=== PATIENT | male | born 1965 | race Caucasian/White ===

== ENCOUNTER 2016-07-30 08:26 | Emergency (ER) | payer OTHER ==
--- NOTE | 2016-07-30 08:40 | EDPHY ---
H & P Stated Complaint: CP HX of pericarditis (tanesha wolffg 04/30) Time Seen by Provider: 07/30/16 08:38 HPI/ROS: CHIEF COMPLAINT: Chest pain HISTORY OF PRESENT ILLNESS: The patient presents to the ED with an acute exacerbation of chronic chest pain. 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 Because of this arrhythmia, the patient underwent a ablation performed at the [facility]. This unfortunately was complicated by postprocedure pericarditis which the patient has suffered from since the ablation. Patient had been managing the symptoms with ibuprofen and also culture seen. The patient reportedly has been tapering off his culture seen over the past week. The patient developed an acute exacerbation of his symptoms today. The patient denies any fever, cough or congestion. He denies asymmetric calf pain or swelling. The patient reports he has sharp left-sided chest pain which is positional and pleuritic in nature. REVIEW OF SYSTEMS: A comprehensive 10 point review of systems is otherwise negative aside from elements mentioned in the history of present illness. Source: Patient Exam Limitations: No limitations - Personal History Current Tetanus/Diphtheria Vaccine: Yes Current Tetanus Diphtheria and Acellular Pertussis (TDAP): Yes - Medical/Surgical History Hx Asthma: No Hx Chronic Respiratory Disease: No Hx Diabetes: No Hx Cardiac Disease: Yes Hx Renal Disease: No Hx Cirrhosis: No Hx Alcoholism: No Hx HIV/AIDS: No Hx Splenectomy or Spleen Trauma: No Other PMH: Ablation for high ectopy ([facility]04/30) appendectomy, tonsilectomy ,wisdom teeth extraction - Social History Smoking Status: Never smoked - Physical Exam Exam: General Appearance: Alert, no distress Eyes: Pupils equal and round no pallor or injection ENT, Mouth: Mucous membranes moist Respiratory: There are no retractions, lungs are clear to auscultation Cardiovascular: Regular rate and rhythm, no rubs murmurs gallops appreciated Gastrointestinal: Abdomen is soft and nontender, no masses, bowel sounds normal Neurological: A&O, normal motor function, normal sensory exam, normal cranial nerves Skin: Warm and dry, no rashes Musculoskeletal: Neck is supple nontender Extremities: symmetrical, full range of motion Constitutional: Initial Vital Signs Temperature (C) 36.5 C 05/19/17 08:28 Heart Rate 68 07/30/16 08:28 Respiratory Rate 16 07/30/16 08:28 Blood Pressure 124/66 H 07/30/16 08:28 O2 Sat (%) 99 07/30/16 08:28 O2 Delivery Mode Room Air Allergies/Adverse Reactions: Milk Containing Products [dairy] Allergy (Verified 01/02/16 06:35) Penicillins Allergy (Verified 01/02/16 06:35) Home Medications: Medication Instructions Recorded Aspirin 81mg (*) 162 mg PO DAILY 01/02/16 Co Q-10 100 mg Softgel 100 mg PO DAILY 01/02/16 Coreg 6.25 mg PO BID 01/02/16 LYSINE 1,000 mg PO DAILY 01/02/16 Lisinopril 10 mg PO BID 01/02/16 Multivitamin 1 tab PO DAILY 01/02/16 [place] 3 Fish Oil Softgel 3,000 mg PO BID 01/02/16 Vitamin D3 2000 units tab (OTC) 1 tab PO BID 01/02/16 Colchicine [Mitigare] 0.6 mg PO BID #60 capsule 07/30/16 Fluticasone Nasal [Flonase Nasal 07/30/16 [place]] Propranolol HCl 20 mg PO 07/30/16 Medical Decision Making - Diagnostics EKG Interpretation: EKG: Complete interpretation has been separately recorded in the [facility] archive. Summary impression: Sinus rhythm, minimal diffuse ST segment elevation unchanged from prior EKG. ED Course/Re-evaluation: I reviewed the patient's past medical records. He presents to the ED with an acute exacerbation of chronic chest pain. His EKG demonstrates no evidence of acute ischemic changes. His troponin is normal. The patient's sed rate is noted to be within normal limits. Patient did undergo an echocardiogram which demonstrates no significant pericardial effusion or wall motion abnormality. The study results were reported to me by Dr. Stanley Manriquez at 11:00 a.m. At this point time I do feel the patient can continue to manage his ongoing chest pain which is consistent with chronic pericarditis. Patient will resume his regular dose of colchicine and continue to use ibuprofen 600 mg up to 3 times a day. Patient has been instructed to return to the ED for markedly worsening symptoms or other concerns. The patient will follow up with his regular test developer at [facility]. Differential Diagnosis: Differential diagnosis considered includes pericarditis, myocardial infarction, pericardial effusion, myocarditis - Data Points Laboratory Results: Laboratory Results 07/30/16 08:49 07/30/16 08:49 07/30/16 07/30/16 07/30/16 08:49 08:49 08:49 WBC 7.59 10^3/uL 10^3/uL (3.80-9.50) RBC 4.91 10^6/uL 10^6/uL (4.40-6.38) Hgb 14.7 g/dL g/dL (13.7-17.5) Hct 44.0 % % (40.0-51.0) MCV 89.6 fL fL (81.5-99.8) MCH 29.9 pg pg (27.9-34.1) MCHC 33.4 g/dL g/dL (32.4-36.7) RDW 13.0 % % (11.5-15.2) Plt Count 194 10^3/uL 10^3/uL (150-400) MPV 10.8 fL fL (8.7-11.7) Neut % (Auto) 65.8 % % (39.3-74.2) Lymph % (Auto) 20.9 % % (15.0-45.0) [place] % (Auto) 7.6 % % (4.5-13.0) Eos % (Auto) 4.9 % % (0.6-7.6) Baso % (Auto) 0.5 % % (0.3-1.7) Nucleat RBC Rel Count 0.0 % % (0.0-0.2) Absolute Neuts (auto) 4.99 10^3/uL 10^3/uL (1.70-6.50) Absolute Lymphs (auto) 1.59 10^3/uL 10^3/uL (1.00-3.00) Absolute Monos (auto) 0.58 10^3/uL 10^3/uL (0.30-0.80) Absolute Eos (auto) 0.37 10^3/uL 10^3/uL (0.03-0.40) Absolute Basos (auto) 0.04 10^3/uL 10^3/uL (0.02-0.10) Absolute Nucleated RBC 0.00 10^3/uL 10^3/uL (0-0.01) Immature Gran % 0.3 % % (0.0-1.1) Immature Gran # 0.02 10^3/uL 10^3/uL (0.00-0.10) Sodium 141 mEq/L mEq/L (134-144) Potassium 4.2 mEq/L mEq/L (3.5-5.2) Chloride 107 mEq/L mEq/L (97-110) Carbon Dioxide 26 mEq/l mEq/l (22-31) Anion Gap 8 mEq/L mEq/L (8-16) BUN 34 mg/dL H mg/dL (7-23) Creatinine 1.0 mg/dL mg/dL (0.7-1.3) Estimated GFR > 60 Glucose 73 mg/dL mg/dL (70-100) Calcium 8.8 mg/dL mg/dL (8.5-10.4) Troponin I < 0.012 ng/mL ng/mL (0-0.034) C-Reactive Protein < 5.0 mg/L mg/L (<10.0) Departure - Departure Disposition: Home, Routine, Self-Care Clinical Impression: Chronic pericarditis Condition: Good Instructions: Chronic Pericarditis (ED) Additional Instructions: 1. Take Ibuprofen or Motrin 600 mg by mouth three times a day. 2. Please resume your regular dose of colchicine. 3. Please contact your regular test developer at [facility] to schedule a follow-up visit. 4. Please return to the ED for markedly worsening symptoms or other concerns. Referrals: Linette Carrasco MD [Primary Care Provider] - As per Instructions Prescriptions: Colchicine [Mitigare] 0.6 mg PO BID #60 capsule
--- NOTE | 2016-07-30 08:46 | CPEKG ---
Heart Rate: 67 RR Interval: 896 P-R Interval: 216 QRSD Interval: 92 QT Interval: 384 QTC Interval: 406 P [place]: 55 QRS [place]: 19 T Wave [place]: 25 EKG Severity - ABNORMAL ECG - EKG Impression: SINUS RHYTHM Electronically Signed By: Nathan Estes 30-Jul-2016 09:11:42
[2016-07-30 08:55] LABS: % IMMATURE GRANULYOCYTES 0.3 % (0.0-1.1); ABSOLUTE IMMATURE GRANULOCYTES 0.02 10^3/uL (0.00-0.10); ADD DIFF? NO; ADD MORPH? NO; ADD SCAN? NO; ATYPICAL LYMPHOCYTE FLAG 10 (0-99); FRAGMENT RBC FLAG 0 (0-99); HEMOGLOBIN 14.7 g/dL (13.7-17.5); LEFT SHIFT FLG 0 (0-99); LIPEMIA HEMOLYSIS FLAG 80 (0-99); MEAN CELL HEMOGLOBIN 29.9 pg (27.9-34.1); MEAN CELL HEMOGLOBIN CONCENTR. 33.4 g/dL (32.4-36.7); MEAN CELL VOLUME 89.6 fL (81.5-99.8); MEAN PLATELET VOLUME 10.8 fL (8.7-11.7); PLATELET CLUMPS FLAG 0 (0-99); PLATELET COUNT 194 10^3/uL (150-400); RED BLOOD CELL COUNT 4.91 10^6/uL (4.40-6.38)
[2016-07-30 09:08] LABS: ANION GAP 8 mEq/L (8-16); CALCIUM 8.8 mg/dL (8.5-10.4); CARBON DIOXIDE 26 mEq/l (22-31); CHLORIDE 107 mEq/L (97-110); GLOMERULAR FILTRATION RATE > 60; GLUCOSE 73 mg/dL (70-100); POTASSIUM 4.2 mEq/L (3.5-5.2); SODIUM 141 mEq/L (134-144)
[2016-07-30 09:19] LABS: TROPONIN I < 0.012 ng/mL (0-0.034)
[2016-07-30 10:19] VITALS: RESP 14
[2016-07-30 10:20] VITALS: BP 103/60; PULSE 60; TEMP 97.5; O2SAT 96
--- NOTE | 2016-07-30 11:23 | ECHO ---
[id number] + + [address] : : [place] [address] : : [phone] + + Adult Echocardiographic Report + + :Name: RADHA WALSH JStudy Date: 07/30/2016 09:34 AM : : Hospital Admission Number: [id number] Loc edelmira: ER4: :: 1965 Gender: Male Height: 74 in : :Age: 50 yrs Race: WH Weight: 195 lb : :Reason For Study: Eval LV Fx : : BSA: 2.1 me ters2 : :History: Chest Pain, History of Pericarditis : + + MMode/2D Measurements \T\ Calculations IVSd: 0.90 cm LVIDd: 5.6 cm FS: 34.8 % Ao root diam: 3.0 cm LVPWd: 1.1 cm LVIDs: 3.6 cm EDV(Teich): 150.5 ml ACS: 1.9 cm ESV(Teich): 55.2 ml EF(Teich): 63.4 % Normal Measurement Values: + + :LVIDd (3.5-5.7cm) IVSd (0.6-1.1cm) LVPWd (0.6-1.1cm) Aortic Root (2.0-3.7cm)Left Atrium (1.5-4.0cm): :LV Vol(d) (76-115ml) LV Vol(s) (29-48ml) Ejec Fraction (50-65%)PV Sam (0.6- 1.2m/s) TV Sam (0.4-1.0m/s) : :MV E Sam (0.8-1.0m/s)MV A Sam (0.3-1.0m/s)LVOT Sam (0.7-1.2m/s) Asc Ao Sam ( 0.9-1.8m/s) : + + Doppler Measurements \T\ Calculations MV E max sam: Ao V2 max: LV V1 max: PA V2 max: 74.0 cm/sec 145.0 cm/sec 120.0 cm/sec 109.0 cm/sec MV A max sam: Ao max PG: LV V1 max PG: PA max P.3 cm/sec 8.4 mmHg 5.8 mmHg 4.8 mmHg MV E/A: 1.3 TR max sam: 255.0 cm/sec TR max P.0 mmHg RAP systole: 5.0 mmHg RVSP(TR): 31.0 mmHg Left Ventricle The left ventricle is normal in size. There is normal left ventricular wall thickness. The left ventricular ejection fraction is normal. Ejection Fraction = 64%. The left ventricle is normal in structure and function. The left ventricular ejection fraction is calculated at 63.4 %. There is Doppler evidence for diastolic dysfunction. The left ventricular wall motion is normal. Right Ventricle The right ventricle is mildly dilated. TAPSE is 2.3 cm. Atria The left atrial size is normal. Right atrial size is normal. Mitral Valve The mitral valve is normal. There is trace to mild mitral regurgitation. Tricuspid Valve The tricuspid valve is normal in structure and function. There is trace tricuspid regurgitation. Right ventricular systolic pressure is normal. Aortic Valve The aortic valve is normal in structure and function. The aortic valve is trileaflet. There is no aortic stenosis. There is no aortic insufficiency. Pulmonic Valve The pulmonic valve is not well visualized. There is no pulmonic valvular regurgitation. Great Vessels The aortic root is normal size. Pericardium/Pleural There is no pericardial effusion. Conclusion A complete two-dimensional transthoracic echocardiogram was performed (2D, M-mode, Doppler and color flow Doppler). (1) Left ventricular systolic ejection fraction was normal (60-65%) - normal wall motion (2) No left ventricular hypertrophy (3) Diastolic dysfunction was present (4) Normal right ventricular size and function (5) Normal atrial dimensions (6) Trace/mild mitral regurgitation (7) Trileaflet aortic valve without sclerosis or insufficiency (8) Physiologic tricuspid regurgitation - RVSP was normal (9) Poor visualization of the pulmonic valve (10) Iin comparison to prior echocardiogram from 05-12-16, there is no pericardial effusion and continued normal LVEF is noted. Final Reading Physician: Orville Recio signed on 07/30/2016 11:22 AM Ordering Physician: Nathan Estes Performed By: Darci Smith, AIDENCS
== END 2016-07-30 10:30 | disposition home or self-care (01) ==
DX: I31.9 Disease of pericardium, unspecified (principal); Z79.82 Long term (current) use of aspirin

== ENCOUNTER 2016-07-31 08:30 | Emergency (ER) | payer OTHER ==
[2016-07-31 08:37] VITALS: RESP 18; TEMP 99
--- NOTE | 2016-07-31 08:47 | CPEKG ---
Heart Rate: 66 RR Interval: 909 P-R Interval: 208 QRSD Interval: 86 QT Interval: 376 QTC Interval: 394 P [place]: 50 QRS [place]: 30 T Wave [place]: 46 EKG Severity - ABNORMAL ECG - EKG Impression: SINUS RHYTHM EKG Impression: ST ELEVATION SUGGESTS PERICARDITIS Electronically Signed By: Nathan Estes 31-Jul-2016 15:46:01
--- NOTE | 2016-07-31 08:48 | EDPHY ---
H & P Stated Complaint: midsternal cp x 1 wk worse today with sob, seen yesterday same Time Seen by Provider: 07/31/16 08:41 HPI/ROS: CHIEF COMPLAINT: Worsening symptoms of pericarditis HISTORY OF PRESENT ILLNESS: The patient presents to the ED with complaints of worsening pleuritic positional chest pain. The patient has a history of a chronic abbie pericarditis. The patient was seen in the emergency department yesterday. At that point time he had evidence of mild pericarditis on his EKG however an unremarkable echocardiogram and biomarker analysis. The patient was advised to resume his regular dose of colchicine yesterday. He has been taking 800 mg of ibuprofen 3 times a day. The patient presents today because his symptoms have worsened. They are fairly typical symptoms of pericarditis. Patient denies additional acute complaints. REVIEW OF SYSTEMS: A comprehensive 10 point review of systems is otherwise negative aside from elements mentioned in the history of present illness. Source: Patient - Personal History Current Tetanus/Diphtheria Vaccine: Unsure Current Tetanus Diphtheria and Acellular Pertussis (TDAP): Unsure - Medical/Surgical History Hx Asthma: No Hx Chronic Respiratory Disease: No Hx Diabetes: No Hx Cardiac Disease: Yes Hx Renal Disease: No Hx Cirrhosis: No Hx Alcoholism: No Hx HIV/AIDS: No Hx Splenectomy or Spleen Trauma: No Other PMH: Ablation for high ectopy ([facility]04/30) appendectomy, tonsilectomy ,wisdom teeth extraction - Social History Smoking Status: Never smoked - Physical Exam Exam: General Appearance: Alert, no distress Eyes: Pupils equal and round no pallor or injection ENT, Mouth: Mucous membranes moist Respiratory: There are no retractions, lungs are clear to auscultation Cardiovascular: Regular rate and rhythm, no rub Gastrointestinal: Abdomen is soft and nontender, no masses, bowel sounds normal Neurological: A&O, normal motor function, normal sensory exam, normal cranial nerves Skin: Warm and dry, no rashes Musculoskeletal: Neck is supple nontender Extremities: symmetrical, full range of motion Constitutional: Initial Vital Signs Temperature (C) 37.2 C 07/31/16 08:34 Heart Rate 78 07/31/16 08:34 Respiratory Rate 18 07/31/16 08:34 Blood Pressure 105/61 07/31/16 08:34 O2 Sat (%) 98 07/31/16 08:34 O2 Delivery Mode Room Air Allergies/Adverse Reactions: Milk Containing Products [dairy] Allergy (Verified 01/02/16 06:35) Penicillins Allergy (Verified 01/02/16 06:35) Home Medications: Medication Instructions Recorded Aspirin 81mg (*) 162 mg PO DAILY 01/02/16 Co Q-10 100 mg Softgel 100 mg PO DAILY 01/02/16 Coreg 6.25 mg PO BID 01/02/16 LYSINE 1,000 mg PO DAILY 01/02/16 Lisinopril 10 mg PO BID 01/02/16 Multivitamin 1 tab PO DAILY 01/02/16 [place] 3 Fish Oil Softgel 3,000 mg PO BID 01/02/16 Vitamin D3 2000 units tab (OTC) 1 tab PO BID 01/02/16 Colchicine [Mitigare] 0.6 mg PO BID #60 capsule 07/30/16 Fluticasone Nasal [Flonase Nasal 07/30/16 [place]] Propranolol HCl 20 mg PO 07/30/16 Medical Decision Making - Diagnostics EKG Interpretation: EKG: Complete interpretation has been separately recorded in the [facility] archive. Summary impression: Changes consistent with pericarditis or noted Imaging Results: Imaging Impressions Chest X-Ray 07/31/16 10:28 Impression: Nothing acute identified. ED Course/Re-evaluation: The patient presents to the ED with symptoms of worsening pericarditis. The patient continues to have evidence of pericarditis on his EKG. The patient's troponin is normal. Patient's chest x-ray demonstrates no evidence of a pneumothorax or heart failure. The patient's D-dimer is negative which I feel adequately excludes pulmonary embolism. I did consult with the on-call investigation lieutenant at [facility] who recommends the patient begin taking 325 mg of aspirin 3 times a day in lieu of ibuprofen. They would like the patient to continue colchicine. They do not recommend starting steroids at this point time. The patient will contact his regular investigation lieutenant on Tuesday to schedule a follow -up visit. The patient was monitored in the emergency department for 4 hours without evidence of vital sign abnormalities, worsening symptoms or other concerns. Differential Diagnosis: Differential diagnosis considered includes pericarditis, myocarditis, pulmonary embolism, pneumothorax, myocardial infarction - Data Points Laboratory Results: 07/31/16 07/31/16 08:50 08:50 D-Dimer < 0.27 ug/mLFEU ug/mLFEU (0.00-0.50) Troponin I < 0.012 ng/mL ng/mL (0-0.034) Departure - Departure Disposition: Home, Routine, Self-Care Clinical Impression: Pericarditis Condition: Good Instructions: Chronic Pericarditis (ED) Additional Instructions: 1. I spoke with the on-call investigation lieutenant at [facility] who recommends stopping ibuprofen and instead taking aspirin 325 mg 3 times a day. 2. Please contact your regular investigation lieutenant at [facility] on Tuesday to review your symptoms. They do not recommend steroids at this point time. 3. Please return to the ED this weekend for markedly worsening symptoms or other concerns. Referrals: Linette Carrasco MD [Primary Care Provider] - As per Instructions
[2016-07-31 12:09] VITALS: PULSE 77
[2016-07-31] MEDS ORDERED: methylPREDNISolone SOD SUCC 125 MG/2 ML VIAL IVP ONE (12:37)
[2016-07-31 13:16] VITALS: BP 131/66; O2SAT 99
== END 2016-07-31 13:16 | disposition home or self-care (01) ==
DX: I31.9 Disease of pericardium, unspecified (principal); Z79.82 Long term (current) use of aspirin

== ENCOUNTER 2016-07-31 20:18 | Observation (INO) | payer OTHER ==
--- NOTE | 2016-07-31 20:54 | EDPHY ---
H & P Stated Complaint: chest pain hx of myocarditis HPI/ROS: CHIEF COMPLAINT: Worsening chest pain HISTORY OF PRESENT ILLNESS: This is a 50-year-old male who has been to the emergency department 3 times now in the past 2 days. He has a history of chronic my 0 pericarditis. This began about a year ago following cardiac ablation that was performed because of ectopy--by his report, thousands of PVCs daily. He developed pericarditis postprocedure early. He has been taking ibuprofen and colchicine. He has been trying to taper his colchicine but 2 days ago developed worsening chest pain. The chest pain is positional. He has not had fever, cough, leg swelling or calf pain. He describes the pain as sharp. It is located centrally. He is followed at [facility]. His ablation was performed at the [facility]. He was seen in the emergency department on 07/30, yesterday, and at that time underwent an echocardiogram. He had normal cardiac biomarkers. He was instructed to continue ibuprofen in resume his regular dose of colchicine. His pain worsened worsened and he presented to the emergency department again this morning. At that time the physician on duty spoke with the haul truck driver on- call at [facility] and it was recommended that he continue colchicine and switch from ibuprofen to aspirin. Steroids were not recommended. Throughout the day today his chest pain has escalated, prompting tonbarbara's visit. He has an appointment in [facility] on Tuesday for cardiac MRI. His haul truck driver is . REVIEW OF SYSTEMS: A ten point review of systems was performed and is negative with the exception of the items mentioned in the HPI. 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 He is here with his . - Physical Exam Exam: General Appearance: Alert. Vital signs reviewed. He appears to be in pain. Eyes: Pupils equal and round, no conjunctival injection, no discharge. Anicteric. ENT, Mouth: Mucous membranes are moist, no oropharyngeal erythema or edema. Neck: No lymphadenopathy, supple. Trachea midline. Respiratory: Lungs are clear to auscultation; no wheezes, rales, or rhonchi. Cardiovascular: Regular rate and rhythm; no murmur, rub, or gallop. Gastrointestinal: Abdomen is soft and nontender, no masses or organomegaly, bowel sounds normal. Skin: Warm and dry, no rashes on exposed skin, normal color. Back: No CVAT. Extremities: No lower extremity edema, no calf tenderness or swelling. Neurological: Alert and oriented. Moving all four extremities easily and equally. Psychiatric: Normal affect. Constitutional: Initial Vital Signs Temperature (C) 36.9 C 07/31/16 20:20 Heart Rate 83 07/31/16 20:20 Respiratory Rate 22 H 07/31/16 20:20 Blood Pressure 123/71 H 07/31/16 20:20 O2 Sat (%) 100 07/31/16 20:20 O2 Delivery Mode Room Air O2 (L/minute) 93 Allergies/Adverse Reactions: Milk Containing Products [dairy] Allergy (Verified 01/02/16 06:35) Penicillins Allergy (Verified 01/02/16 06:35) Home Medications: Medication Instructions Recorded Aspirin 81mg (*) 162 mg PO DAILY 01/02/16 Co Q-10 100 mg Softgel 100 mg PO DAILY 01/02/16 Coreg 6.25 mg PO BID 01/02/16 LYSINE 1,000 mg PO DAILY 01/02/16 Lisinopril 10 mg PO BID 01/02/16 Multivitamin 1 tab PO DAILY 01/02/16 [place] 3 Fish Oil Softgel 3,000 mg PO BID 01/02/16 Vitamin D3 2000 units tab (OTC) 1 tab PO BID 01/02/16 Colchicine [Mitigare] 0.6 mg PO BID #60 capsule 07/30/16 Fluticasone Nasal [Flonase Nasal 07/30/16 [place]] Propranolol HCl 20 mg PO 07/30/16 Medical Decision Making - Diagnostics EKG Interpretation: 12 lead EKG is interpreted in [facility] by emergency department physician. Compared to earlier EKGs. There is ST elevation that is diffuse and consistent with pericarditis. ED Course/Re-evaluation: , Libby, can be reached at home tonight at [phone]. He received Dilaudid 0.5 mg IV and Toradol 15 mg IV. With these medications he had significant pain relief. He was re-evaluated at approximately 11:00 p.m., which time he had continued pain relief with occasional twinges of some chest discomfort. I am recommending overnight hospitalization for pain control and transition to oral pain medicine. I do not feel that he needs imaging at this point in time. He had a chest x- ray done this morning. I do not suspect accumulation of a significant pericardial effusion, but if the clinical situation changed, he might require cardiac ultrasound/echo. Troponin is normal tonight. Differential Diagnosis: I considered a differential diagnosis that includes but is not limited to myocarditis, pericarditis, pericarditis with pleural effusion, tamponade, PE, pneumonia, myocardial infarction, and pneumothorax. - Data Points Laboratory Results: Laboratory Results 07/31/16 20:55 07/31/16 20:55 Sodium 141 mEq/L mEq/L (134-144) Potassium 4.2 mEq/L mEq/L (3.5-5.2) Chloride 106 mEq/L mEq/L (97-110) Carbon Dioxide 25 mEq/l mEq/l (22-31) Anion Gap 10 mEq/L mEq/L (8-16) BUN 23 mg/dL mg/dL (7-23) Creatinine 0.9 mg/dL mg/dL (0.7-1.3) Estimated GFR > 60 Glucose 100 mg/dL mg/dL (70-100) Calcium 9.1 mg/dL mg/dL (8.5-10.4) Troponin I < 0.012 ng/mL ng/mL (0-0.034) Medications Given: Discontinued Medications Hydromorphone HCl (Dilaudid) 0.5 mg IVP EDNOW ONE Stop: 07/31/16 21:08 Last Admin: 07/31/16 21:18 Dose: 0.5 mg Ketorolac Tromethamine (Toradol) 15 mg IVP EDNOW ONE Stop: 07/31/16 21:08 Last Admin: 07/31/16 21:19 Dose: 15 mg Departure - Departure Disposition: [facility] Clinical Impression: Pericarditis Qualifiers: Pericarditis type: other type Chronicity: chronic Chronic pericarditis complication: unspecified complication status Qualified Code(s): I31.8 - Other specified diseases of pericardium Condition: Good Referrals: Linette Carrasco MD [Primary Care Provider] - As per Instructions
[2016-07-31] MEDS ORDERED: HYDROmorphONE/DILAUDID 1 MG/ML SYR IVP ONE ×2 (21:07→23:21)
[2016-07-31] MEDS ORDERED: KETOROLAC 30 MG/1 ML SDV IVP ONE (21:07)
[2016-07-31 21:11] LABS: ANION GAP 10 mEq/L (8-16); CALCIUM 9.1 mg/dL (8.5-10.4); CARBON DIOXIDE 25 mEq/l (22-31); CHLORIDE 106 mEq/L (97-110); CREATININE 0.9 mg/dL (0.7-1.3); GLOMERULAR FILTRATION RATE > 60; GLUCOSE 100 mg/dL (70-100); POTASSIUM 4.2 mEq/L (3.5-5.2); SODIUM 141 mEq/L (134-144)
[2016-07-31 21:22] LABS: TROPONIN I < 0.012 ng/mL (0-0.034)
[2016-08-01] MEDS ORDERED: ONDANSETRON 4 MG/2 ML VIAL IVP PRN (00:19)
[2016-08-01] MEDS ORDERED: ONDANSETRON DISINTEGRATING 4 MG TAB PO PRN (00:19)
[2016-08-01] MEDS ORDERED: HYDROmorphONE/DILAUDID 1 MG/ML SYR IVP PRN ×2 (00:19→03:20)
[2016-08-01] MEDS ORDERED: ACETAMINOPHEN 325 MG TAB PO PRN (00:19)
--- NOTE | 2016-08-01 00:26 | PDGENHP ---
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 England). Ablation was complicated by post-op pericarditis which has been persistent since his procedure. He has been treated with colchicine and ibuprofen, and up until 1 week ago he felt his symptoms were improving. However, last week his pain acutely worsened. He describes his pain as sharp, positional, substernal, pleuritic, worse with deep inspiration. He came to the ED on 07/30 with his symptoms, during that evaluation, he remained hemodynamically stable, EKG appeared consistent with pericarditis, his troponin was negative and TTE was obtained that was essentially unremarkable. He was discharged with recommendation to continue colchicine and ibuprofen for pain management. He returned to the ED earlier in the day on 07/31, with persistent intense pain, which was again controlled in the ED and he was again discharged home. Upon returning home, his pain recurred, he reports it intensified to a 9-10/10 in intensity and he felt he could not breath due to pain. Given this, he has returned again to the ED. On arrival this evening, vs were afebrile and hemodynamically stable. Labs, including troponin, were again normal. CXR was unremarkable and EKG shows changes consistent with his pericarditis. He was given toradol and IV dilaudid with significant improvement in symptoms. Given his recurrent ER visits for continued pain, he was then admitted for further observation and pain management. His mobile battery technician at [facility] was contacted and recommended against initiating steroid therapy. History Information - Allergies/Home Medication List Allergies/Adverse Reactions: Milk Containing Products [dairy] Allergy (Verified 01/02/16 06:35) Penicillins Allergy (Verified 01/02/16 06:35) Home Medications: Aspirin 81mg (*) 162 mg PO DAILY 01/02/16 [Last Taken 01/02/16 05:00] Co Q-10 100 mg Softgel 100 mg PO DAILY 01/02/16 [Last Taken 01/02/16 05:00] Coreg 6.25 mg PO BID 01/02/16 [Last Taken 01/02/16 05:00] LYSINE 1,000 mg PO DAILY 10/21/16 [Last Taken 01/01/16 05:00] Lisinopril 10 mg PO BID 01/02/16 [Last Taken 01/02/16 05:00] Multivitamin 1 tab PO DAILY 01/02/16 [Last Taken 01/01/16 19:00] [place] 3 Fish Oil Softgel 3,000 mg PO BID 01/02/16 [Last Taken 01/01/16 19:00] Vitamin D3 2000 units tab (OTC) 1 tab PO BID 01/02/16 [Last Taken 01/01/16 19:00 ] Fluticasone Nasal [Flonase Nasal [place]] 07/30/16 [Last Taken Unknown] Propranolol HCl 20 mg PO 07/30/16 [Last Taken Unknown] I have personally reviewed and updated: family history, medical history, social history, surgical history - Past Medical History Additional medical history: myocarditis (2016). ectomy (>52047 PVCs daily) s/p ablation - Surgical History Additional surgical history: ablation via pericardrium - Family History Additional family history: M: at 71 with CAD - Social History Smoking Status: Never smoked Alcohol Use: None Drug Use: None Additional social history: works as geotechnical engineer, lives in [place]. Review of Systems ROS: 10pt was reviewed & negative except for what was stated in HPI & below Physical Exam Temp Pulse Resp BP Pulse Ox 37 C 82 12 121/71 H 92 07/31/16 22:00 07/31/16 23:32 07/31/16 23:32 07/31/16 23:32 07/31/16 23:32 Constitutional: no apparent distress, appears nourished, not in pain Eyes: PERRL, anicteric sclera, EOMI Ears, Nose, Mouth, Throat: moist mucous membranes, hearing normal, ears appear normal, no oral mucosal ulcers Cardiovascular: regular rate and rhythym, no murmur, rub, or gallop, pulses symmetric bilaterally, No JVD, No edema Peripheral Pulses: 2+: dorsalis-pedis (R), dorsalis-pedis (L) Respiratory: no respiratory distress, no rales or rhonchi, clear to auscultation Gastrointestinal: normoactive bowel sounds, soft, non-tender abdomen, no palpable masses Genitourinary: no bladder fullness, no bladder tenderness Skin: warm, normal color, no rashes or abrasions, no fluctuance, no induration, No mottled Musculoskeletal: full muscle strength, no muscle tenderness, normal joint ROM, no joint effusions Neurologic: AAOx3, sensation intact bilaterally, CN II-XII Intact, No weakness, No numbness Psychiatric: interacting appropriately, not anxious, not encephalopathic, thought process linear Lab Data & Imaging Review 08/01/16 03:47 08/01/16 03:47 Sodium 141 mEq/L (134-144) 07/31/16 20:55 Potassium 4.2 mEq/L (3.5-5.2) 07/31/16 20:55 Chloride 106 mEq/L (97-110) 07/31/16 20:55 Carbon Dioxide 25 mEq/l (22-31) 07/31/16 20:55 Anion Gap 10 mEq/L (8-16) 07/31/16 20:55 BUN 23 mg/dL (7-23) 07/31/16 20:55 Creatinine 0.9 mg/dL (0.7-1.3) 07/31/16 20:55 Estimated GFR > 60 07/31/16 20:55 Glucose 100 mg/dL (70-100) 07/31/16 20:55 Calcium 9.1 mg/dL (8.5-10.4) 07/31/16 20:55 Troponin I < 0.012 ng/mL (0-0.034) 07/31/16 20:55 Visualized and Interpreted EKG results: Yes EKG Interpretation: Positive for: normal sinsus rhythm (st elevations diffusely) Assessment & Plan Assessment: Patient is 50 year old male with history of myocarditis that has been complicated by chronic pericarditis present for the past 3 months. His pericardial symptoms have acutely worsened about 1 week ago, patient with 3 ED visits for pain control in the past 2 days. Today, ED evaluation reveals EKG changes consistent with pericarditis, stable VS and negative troponin. Plan: # acute on chronic pericarditis Symptoms had been well controlled with colchicine and ibuprofen until about 1 week ago. Since that time, patient describes intense pleuritic pain, unresponsive to NSAIDs. He was evaluated in the ED on 07/30 for these symptoms, at which time EKG showed pericardial changes, but TTE was unremarkable. Troponins have been negative on each presentation. Pain improves with dilaudid. - toradol 30 mg IV q6h - cont colchicine bid - tylenol 500-1000 mg po q6h prn - IV dilaudid prn for persistent pain unresponsive to above meds - patient scheduled for Cardiac MRI at [facility] on 08/03 # dispo: admit to observation status for symptom control # gen: Regular diet Full code
[2016-08-01] MEDS ORDERED: NS 1,000 ML IV SCH (00:30)
--- NOTE | 2016-08-01 07:41 | CPEKG ---
Heart Rate: 81 RR Interval: 741 P-R Interval: 208 QRSD Interval: 86 QT Interval: 352 QTC Interval: 409 P [place]: 60 QRS [place]: 43 T Wave [place]: 55 EKG Severity - ABNORMAL ECG - EKG Impression: SINUS RHYTHM EKG Impression: ST ELEVATION SUGGESTS PERICARDITIS Preliminary Awaiting MD Review
[2016-08-01 07:51] LABS: INR 1.19 (0.83-1.16); PROTIME(PATIENT) 15.1 SEC (12.0-15.0)
[2016-08-01 07:53] LABS: % IMMATURE GRANULYOCYTES 0.8 % (0.0-1.1); ABSOLUTE IMMATURE GRANULOCYTES 0.07 10^3/uL (0.00-0.10); ADD DIFF? NO; ADD MORPH? NO; ADD SCAN? NO; ATYPICAL LYMPHOCYTE FLAG 0 (0-99); FRAGMENT RBC FLAG 10 (0-99); HEMATOCRIT 40.9 % (40.0-51.0); HEMOGLOBIN 14.2 g/dL (13.7-17.5); LEFT SHIFT FLG 20 (0-99); LIPEMIA HEMOLYSIS FLAG 90 (0-99); MEAN CELL HEMOGLOBIN 30.5 pg (27.9-34.1); MEAN CELL HEMOGLOBIN CONCENTR. 34.7 g/dL (32.4-36.7); MEAN PLATELET VOLUME 10.8 fL (8.7-11.7); PLATELET CLUMPS FLAG 0 (0-99); PLATELET COUNT 190 10^3/uL (150-400); RED BLOOD CELL COUNT 4.65 10^6/uL (4.40-6.38); RED CELL DISTRIBUTION WIDTH 12.8 % (11.5-15.2)
[2016-08-01 07:59] LABS: APTT 34.5 SEC (23.0-38.0)
[2016-08-01 08:14] LABS: ANION GAP 7 mEq/L (8-16); CALCIUM 8.4 mg/dL (8.5-10.4); CARBON DIOXIDE 25 mEq/l (22-31); CHLORIDE 107 mEq/L (97-110); CREATININE 0.9 mg/dL (0.7-1.3); GLOMERULAR FILTRATION RATE > 60; GLUCOSE 92 mg/dL (70-100); POTASSIUM 4.1 mEq/L (3.5-5.2); SODIUM 139 mEq/L (134-144); TROPONIN I < 0.012 ng/mL (0-0.034)
[2016-08-01] MEDS: KETOROLAC 30 MG/1 ML SDV IVP PRN ×2 (10:11→16:29)
[2016-08-01] MEDS: HYDROCODONE/APAP 5/325 TAB PO PRN ×2 (10:12→17:52)
--- NOTE | 2016-08-01 10:29 | PDCARPN ---
Cardiology Progress Note Assessment/Plan: 50-year-old male with a history of myocarditis, pericarditis, and frequent PVCs in the past. His issues began in 2014. Previous cardiac catheterization demonstrated no significant CAD. He was seen at the [facility] in [place] in April of this year. At that time he underwent PVC ablation sites in the right ventricular outflow tract, left ventricle, and epicardial locations. He had pericarditis following his procedure. He has been experiencing increasing episodes of chest discomfort described as a left-sided "runner's stitch". He was seen in the emergency room on Tuesday. During that evaluation his echocardiogram, troponin, CRP and ECG were normal. There were no PVCs on his ECG. He returned to the emergency room yesterday morning. Again, his evaluation was unremarkable and he was discharged. His third trip to the emergency room was last night and, at this point, he was admitted for further management. He continues to report his chest discomfort. This has required narcotic pain medications relief. He has been on once a day colchicine and 400 mg of ibuprofen every 4-6 hours. He was discharged from the [facility] several weeks ago, he was on twice daily colchicine. He has been followed by [facility]. He was last seen in May by Dr. Ryland Nielsen. However, he says that he is no longer using the services of [facility] and is now seeing Dr. Rashel England at [facility]. He has a cardiac MRI scheduled for Tuesday of this week. At this point there is no indication for active myocarditis or pericarditis based on inflammatory markers, cardiac enzymes, or echocardiography. I feel he is stable for discharge. Unfortunately, I think he has now developed a chronic pain syndrome with a possible component of drug seeking behavior. The hospitalist team reported that he was insistent on being awakened every 2 hours to receive Dilaudid. During my encounter with him he mentioned that Percocet and oxycodone were not effective for him or cause side effects and stated that he was now receiving "something called...." (he appeared not to be able to recall the name and reference the piece of paper where he had written Dilaudid.) 08/01/16 10:28 Subjective: Left sided chest pain. Reviewed/Discussed With: hospitalist Objective: Vital Signs (8 Hrs) Temp Pulse Resp BP Pulse Ox 08/01/16 08:35 37.1 C 84 12 94/58 L 94 Intake/Output (24 Hrs) 07/31/16 08/01/16 08/02/16 05:59 05:59 05:59 Intake Total 500 Output Total 1 Balance 499 Intake: IV Intake (ml) 0 IV Infused (ml) 500 Output: Urine (ml) 1 Other: Weight 87.146 kg Result Diagrams: 08/01/16 03:47 08/01/16 03:47 Cardiac Labs: Cardiac Lab Results (72 Hrs) 08/01/16 03:47 Troponin I < 0.012 - Physical Exam Constitutional: WDWN, healthy appearing, no apparent distress Eyes: anicteric sclera Ears, Nose, Mouth, Throat: moist mucous membranes Cardiovascular: regular rate and rhythm, no rubs Respiratory: clear to auscultate bilat Gastrointestinal: normoactive bowel sounds, no tenderness, no masses Skin: no rashes, no edema Neurologic: AAOx3 Psychiatric: not anxious ICD10 Worksheet Patient Problems: Problems Problem Status Onset Pericarditis Acute
[2016-08-01] MEDS ORDERED: HYDROmorphONE/DILAUDID 2 MG TAB PO PRN (11:02)
[2016-08-01] MEDS ORDERED: FLECAINIDE ACETATE 50 MG PO SCH (11:15)
[2016-08-01] MEDS ORDERED: COLCHICINE 0.6 MG CAP/TAB PO SCH (11:15)
[2016-08-01] MEDS ORDERED: FLECAINIDE ACETATE 100 MG TAB PO SCH (11:15)
[2016-08-01 11:32] VITALS: RESP 16; TEMP 98.6
--- NOTE | 2016-08-01 13:52 | CPEKG ---
Heart Rate: 84 RR Interval: 714 P-R Interval: 200 QRSD Interval: 80 QT Interval: 360 QTC Interval: 426 P [place]: 56 QRS [place]: 41 T Wave [place]: 50 EKG Severity - NORMAL ECG - EKG Impression: SINUS RHYTHM Electronically Signed By: Zohra Mata 01-Aug-2016 19:29:42
[2016-08-01 16:04] VITALS: BP 102/64; PULSE 91; O2SAT 96
--- NOTE | 2016-08-01 16:34 | PDDCSUM ---
Discharge Summary Discharge Summary: Dates of service 07/31-08/01/16 Consultations: cardiology Procedures performed: none Hospital course by problem # chest pain: patient states this is due to recurrent acute pericarditis which has been an ongoing issue x 3 months. Echo several days ago unremarkable, inflammatory markers normal. Does have persistent st elevations diffusely c/w pericarditis on ecg for the last several days--was seen in ER here every day for the last 3 days. Is followed at [facility] and has been on colchicine, advil and aspirin. He has had very bizarre behavior around narcotic while in house as next. # narcotic seeking behavior: patient has exhibited some strange behaviors around narcotics--initially stating over and over that he was "promised" he would get dilaudid every 2 hours, and asking to be woken from sleep around the clock for dilaudid, later pretending he did not know the name "dilaudid". He was noted to have several pill bottles with various opiate rx in his possession , but only 1 fill for oxycodone found in the last year for him in the PDMP. Repeatedly asking to reconfirm when he can have his pain medications despite also acknowledging that his pain level was no more than a 2/10 and appearing very comfortable. Ultimately agreed to plan to send him home with 3 days of pain medications and a plan to f/u with his PCP and/or [facility]. Reminded patient that narcotics were not treatment of choice for pericarditis. # pericarditis: as above, no e/o chf or HD compromise, will f/u with his usual MDs Patient dc home Meds: see EHR, given toradol x 16, norco x 10 and dilaudid x 6. Would recommend no further narcotic rx for this patient if he returns > 35 minutes spent in dc more than half in counseling of patient regarding his f /u care plan and coordination of care, plan reviewed with cardiology
[2016-08-01] MEDS ORDERED: OMEGA-3 FATTY ACIDS 1,000 MG CAP PO SCH (21:00)
[2016-08-01] MEDS ORDERED: CHOLECALCIFEROL VIT D3 1,000 UNITS TAB PO SCH (21:00)
[2016-08-01] MEDS ORDERED: LISINOPRIL 20 MG TAB PO SCH (21:00)
[2016-08-01] MEDS ORDERED: diphenhydrAMINE 25 MG CAP PO SCH (21:00)
[2016-08-01] MEDS ORDERED: LISINOPRIL 10 MG TAB PO SCH (21:00)
[2016-08-02] MEDS ORDERED: OMEGA-3 FATTY ACIDS 1,000 MG CAP PO SCH (09:00)
[2016-08-02] MEDS ORDERED: ASPIRIN EC 81 MG TAB PO SCH (09:00)
[2016-08-02] MEDS ORDERED: PROMETHAZINE HCL 25 MG TAB PO SCH (09:00)
[2016-08-02] MEDS ORDERED: METOPROLOL SUCCINATE XR 25 MG TAB PO SCH (09:00)
[2016-08-02] MEDS ORDERED: FLUTICASONE NASAL 120 SPRAYS/16 GM MDI EACHNARE SCH (09:00)
[2016-08-02] MEDS ORDERED: SODIUM CL NASAL 45 ML BTL NS SCH (09:00)
[2016-08-02] MEDS ORDERED: ASCORBIC ACID 500 MG TAB PO SCH (09:00)
[2016-08-02] MEDS ORDERED: NON-FORMULARY NEW DRUG (Omeprazole Magnesium [Prilosec Otc] 20 MG) PO SCH (09:00)
[2016-08-02] MEDS ORDERED: VITAMIN B COMPLEX 1 EA CAP/TAB PO SCH (09:00)
[2016-08-02] MEDS ORDERED: PANTOPRAZOLE SODIUM 40 MG TAB PO SCH (09:00)
== END 2016-08-01 18:06 | disposition home or self-care (01) ==
LOC: F2W 08-01 00:30
PROVIDERS: ADMIT Internal Medicine; ATTEND Internal Medicine
DX: R07.9 Chest pain, unspecified (principal); Z72.89 Other problems related to lifestyle; I31.8 Other specified diseases of pericardium; Z82.49 Family history of ischemic heart disease and other diseases of the circulatory system; Z88.0 Allergy status to penicillin; Z79.82 Long term (current) use of aspirin
CPT/HCPCS: 93005; G0378; J1170; J1885

== ENCOUNTER 2016-08-12 17:17 | Emergency (ER) | payer OTHER ==
[2016-08-12 17:24] VITALS: BP 102/56
--- NOTE | 2016-08-12 17:49 | EDPHY ---
H & P Stated Complaint: Left arm possible blood clot from IV stick Time Seen by Provider: 08/12/16 17:27 HPI/ROS: CHIEF COMPLAINT: Left arm pain HISTORY OF PRESENT ILLNESS: This is a 50-year-old male patient presenting to the emergency department complaining of left upper extremity pain. Patient was admitted here to the ED discharged on 07/31 for pericarditis. Patient stated he started having pain in his left antecubital few days after being discharged from the hospital, who is a physician told him he may have phlebitis but was waiting to see if symptoms got better. The patient stated yesterday and today he started having more pain radiating to his left axilla, no swelling no fever no chills no chest pain or shortness of breath REVIEW OF SYSTEMS: Constitutional: No fever, no chills. Eyes: No discharge. No blurred vision ENT: No sore throat. Cardiovascular: No chest pain, no palpitations. Respiratory: No cough, no shortness of breath. Gastrointestinal: No abdominal pain, no vomiting. Genitourinary: No hematuria. Musculoskeletal: No back pain. Left upper extremity pain Skin: No rashes. Neurological: No headache. Source: Patient - Personal History Current Tetanus/Diphtheria Vaccine: Yes Current Tetanus Diphtheria and Acellular Pertussis (TDAP): Yes - Medical/Surgical History Hx Asthma: No Hx Chronic Respiratory Disease: No Hx Diabetes: No Hx Cardiac Disease: Yes Hx Renal Disease: No Hx Cirrhosis: No Hx Alcoholism: No Hx HIV/AIDS: No Hx Splenectomy or Spleen Trauma: No Other PMH: Ablation for high ectopy ([facility]/30) appendectomy, tonsilectomy ,wisdom teeth extraction - Social History Smoking Status: Never smoked - Physical Exam Exam: General Appearance: Alert, no distress. Eyes: Pupils equal and round no pallor or injection. ENT, Mouth: Mucous membranes moist. Respiratory: There are no retractions, lungs are clear to auscultation. Cardiovascular: Regular rate and rhythm. Gastrointestinal: Abdomen is soft and nontender, no masses, bowel sounds normal. Neurological: No focal deficits Skin: Warm and dry, no rashes. Musculoskeletal: Neck is supple nontender. Extremities: Left antecubital tenderness pain radiating to left axilla on palpation, no swelling noted symmetrical, full range of motion without difficulty. Positive CMS intact Psychiatric: Patient is oriented X 3, there is no agitation. Constitutional: Initial Vital Signs Temperature (C) 36.8 C 08/12/16 17:20 Heart Rate 66 08/12/16 17:20 Respiratory Rate 17 08/12/16 17:20 Blood Pressure 102/56 L 08/12/16 17:20 O2 Sat (%) 97 08/12/16 17:20 O2 Delivery Mode Room Air Allergies/Adverse Reactions: Milk Containing Products [dairy] Allergy (Verified 08/12/16 17:20) Penicillins Allergy (Verified 08/12/16 17:20) Home Medications: Medication Instructions Recorded Ascorbic Acid [Vitamin C 500 mg 500 mg PO DAILY 08/01/16 (*)] Aspirin EC [Aspirin EC 81 mg (*)] 81 mg PO DAILY 08/01/16 Cholecalciferol Vit D3 [Vitamin D3 2,000 units PO BID 08/01/16 (*)] Colchicine [Colchicine (*)] 0.6 mg PO BID 08/01/16 Flecainide Acetate 50 mg PO Q12H 08/01/16 Fluticasone Nasal [Flonase Nasal 1 sprays EACHNARE DAILY 08/01/16 [place]] HYDROmorphone HCL [Dilaudid 2 mg 2 mg PO Q4HRS PRN #6 tab 08/01/16 (*)] Herbals/Supplements -Info Only 1 ea PO DAILY 08/01/16 Hydrocodone/APAP 5/325 [[place] 1 - 2 tab PO Q4HRS PRN #10 tab 08/01/16 5/325 (*)] Ketorolac Tromethamine [Toradol] 10 mg PO Q6H #16 tab 08/01/16 Lisinopril [Zestril 10 mg (*)] 20 mg PO BID 08/01/16 Metoprolol Succinate Xr [Toprol Xl 25 mg PO DAILY 08/01/16 25 mg (*)] [place]-3 Fatty Acids [Fish Oil 1000 2,000 mg PO DAILY 08/01/16 mg (*)] [place]-3 Fatty Acids [Fish Oil 1000 4,000 mg PO HS 08/01/16 mg (*)] Omeprazole Magnesium [Prilosec Otc] 20 mg PO DAILY 08/01/16 Promethazine HCl [Phenergan 25mg 12.5 mg PO DAILY 08/01/16 (*)] Sodium Cl Nasal [Colo [place] (*)] 1 spray NS DAILY 08/01/16 Vitamin B Complex [B Complex] 1 tab PO DAILY 08/01/16 diphenhydrAMINE [Benadryl 25 MG 25 - 50 mg PO HS 08/01/16 (*)] Medical Decision Making - Diagnostics Imaging Results: Imaging Impressions Extremity Venous Study 08/12/16 17:45 Impression: No evidence of vein thrombosis in the left arm. Results called and discussed with Angelika Lowery NP on 08/12/2016 at 18:40 ED Course/Re-evaluation: Discussed ED plan of care: Ultrasound of upper extremity 1835: Spoke with Dr. Doyle ultrasound negative for any DVT 1835: RN informed the patient had left without result of ultrasound. Patient left without formal discharge paperwork and results Differential Diagnosis: Other differential diagnosis considered but not limited to upper extremity DVT, phlebitis and cellulitis Departure - Departure Disposition: Home, Routine, Self-Care Clinical Impression: Arm pain, left Condition: Good Referrals: Linette Carrasco MD [Primary Care Provider] - As per Instructions
[2016-08-12 19:39] VITALS: PULSE 68; RESP 14; TEMP 98.1; O2SAT 96
== END 2016-08-12 19:39 | disposition home or self-care (01) ==
DX: M79.602 Pain in left arm (principal); Z79.82 Long term (current) use of aspirin

== ENCOUNTER 2018-03-25 05:02 | Observation (INO) | payer OTHER ==
[2018-03-25 05:39] LABS: PLATELET COUNT 162 10^3/uL (150-400)
[2018-03-25] MEDS ORDERED: HYDROmorphONE/DILAUDID 2 MG/ML INJ IVP ONE (05:41)
[2018-03-25] MEDS ORDERED: HYDROmorphONE/DILAUDID 1 MG/ML INJ ONE (05:42)
--- NOTE | 2018-03-25 05:45 | EDPHY ---
H & P Stated Complaint: CP STARTED @ 3 AM Source: Patient - Personal History Current Tetanus Diphtheria and Acellular Pertussis (TDAP): Yes - Medical/Surgical History Hx Asthma: No Hx Chronic Respiratory Disease: No Hx Diabetes: No Hx Cardiac Disease: Yes Hx Renal Disease: No Hx Cirrhosis: No Hx Alcoholism: No Hx HIV/AIDS: No Hx Splenectomy or Spleen Trauma: No Other PMH: Ablation for high ectopy ([facility]04/30) appendectomy, tonsilectomy ,wisdom teeth extraction, MYOCARDITIS, PERICARDITIS - Social History Smoking Status: Never smoked Time Seen by Provider: 03/25/18 05:19 HPI/ROS: HPI The patient presents with chest pain which is left-sided, sharp, constant and began at 3:00 a.m. This morning, awaking him from sleep. He describes the pain as just below his left clavicle in his "brachial plexus". The pain is worse with changes in position and lying down. It is associated with shortness of breath. As he has not had any nausea, vomiting, dizziness, diaphoresis, cough, fever. He has had no recent illnesses, airplane travel. He at home he has taken indomethacin aspirin 81 mg x2, Tums, omeprazole, Carafate, beta-angel and his symptoms continued so he comes into the emergency department. Last time he had pain like this was in July of 2016 when he presented to the emergency department on several occasions and was thought to have recurrent pericarditis. He was ultimately admitted to the hospital in after receiving Toradol and Dilaudid his pain improved and he was discharged. Discharge summary shows some concern about opiate seeking behavior. He has a history of myocarditis found on cardiac MRI in 2016 in the setting of flu like symptoms. He developed frequent PVCs and underwent coronary angiogram that was negative for CAD. Because of his ongoing PVCs he had an epicardial PVC ablation at the [facility] in April of 2016. Postprocedure early, he developed pericarditis which was treated with colchicine and Advil. He then was admitted to our hospital in July of 2016 with relatively normal evaluation, echo demonstrating mild pericardial effusion. He had another cardiac MRI after the admission which showed a moderate pericardial effusion with normal ejection fraction consistent with pericarditis. He return to the [facility] in August of 2016 and restarted indomethacin and colchicine. His pericardial effusion gradually improved. He has been instructed to take indomethacin as needed for chest discomfort. He is currently followed by certified anesthesiologist assistant at [facility], Dr. England, and has been relatively asymptomatic. REVIEW OF SYSTEMS 10 systems were reviewed and negative with the exception of the elements mentioned in the history of present illness. PMHx: Myocarditis, PVCs, cardiac ablation, subsequent pericarditis as detailed above Soc Hx: Here with his who is a radiologist PHYSICAL General Appearance: Alert, uncomfortable appearing Eyes: Pupils equal and round no pallor or injection ENT, Mouth: Mucous membranes moist Respiratory: There are no retractions, lungs are clear to auscultation Cardiovascular: Regular rate and rhythm , no chest wall tenderness Gastrointestinal: Abdomen is soft and non-tender, no masses, bowel sounds normal Neurological: A&O, moves all extremities Skin: Warm and dry, no rashes Musculoskeletal: Neck is supple non tender Extremities: symmetrical, full range of motion Psychiatric: Patient is oriented X 3, there is no agitation (Libby Sharp) Constitutional: Initial Vital Signs Temperature (C) 36.3 C 03/25/18 05:06 Heart Rate 55 L 03/25/18 05:06 Respiratory Rate 16 03/25/18 05:06 Blood Pressure 112/66 03/25/18 05:06 O2 Sat (%) 100 03/25/18 05:06 O2 Delivery Mode Nasal Cannula O2 (L/minute) 2 Allergies/Adverse Reactions: Milk Containing Products [dairy] Allergy (Verified 08/12/16 17:20) Penicillins Allergy (Verified 08/12/16 17:20) Home Medications: Medication Instructions Recorded Ascorbic Acid [Vitamin C 500 mg 500 mg PO DAILY 08/01/16 (*)] Aspirin EC [Aspirin EC 81 mg (*)] 81 mg PO DAILY 08/01/16 Cholecalciferol Vit D3 [Vitamin D3 2,000 units PO BID 08/01/16 (*)] Fluticasone Nasal [Flonase Nasal 1 sprays EACHNARE DAILY 08/01/16 Rosalia] Herbals/Supplements -Info Only 1 ea PO DAILY 08/01/16 Lisinopril [Zestril 10 mg (*)] 20 mg PO BID 08/01/16 Metoprolol Succinate Xr [Toprol Xl 25 mg PO DAILY 08/01/16 25 mg (*)] Rye-3 Fatty Acids [Fish Oil 1000 3,000 mg PO BID 08/01/16 mg (*)] Omeprazole Magnesium [Prilosec Otc] 20 mg PO DAILY PRN 08/01/16 Sodium Cl Nasal [[place] (*)] 1 spray NS DAILY PRN 08/01/16 Vitamin B Complex [B Complex] 1 tab PO DAILY 08/01/16 diphenhydrAMINE [Benadryl 25 MG 25 - 50 mg PO HS PRN 08/01/16 (*)] Colchicine [Mitigare] 0.6 mg PO BID 03/25/18 Indomethacin [Indocin 25 mg (*)] 50 mg PO TID PRN 03/25/18 Melatonin [Melatonin 3 MG (*)] 3 mg PO HS PRN 03/25/18 Promethazine HCl [Phenergan 12.5mg 12.5 mg PO Q6 PRN #20 tablet 03/25/18 tab] Sucralfate [Carafate 1 GM (*)] 1 gm PO ACHS PRN 03/25/18 oxyCODONE IR [Oxycodone Ir (*)] 5 - 10 mg PO Q3HRS PRN #18 tab 03/25/18 Medical Decision Making - Diagnostics EKG Interpretation: EKG: Complete interpretation has been separately recorded in the [email or web address] archive. Summary impression: PVC, no ST segment changes (Libby Sharp) Differential Diagnosis: 52-year-old male with past cardiac history of myocarditis, pericarditis, frequent PVCs status post epicardial ablation who presents with acute onset of left-sided sharp chest pain that feels like previous pericarditis. Here, vital signs are normal. He does not have any murmur or rub on cardiac exam, lungs are clear, he does not have chest wall tenderness. Differential diagnosis includes early pericarditis, myocarditis, ACS, pleural effusion, pneumonia. In the emergency department, patient requests strong pain medication. I have ordered him Dilaudid with some reservation. EKG was unremarkable and actually improved from prior EKG in our system. 7:00 a.m.- The patient was reassessed and his pain has returned and is associated with nausea now. I have ordered fentanyl and Zofran. Labs were checked and were unremarkable. Chest x-ray was normal. His chemistries were hemolyzed thus I am not concerned about his slightly elevated potassium. I have discussed his testing with him. The case will be signed out to the oncoming provider Dr. Manzo to reassess his pain. Goal is for patient to be able to discharge home and resume his anti-inflammatories. (Libby Sharp) Other Provider: I assumed care of this patient at shift change from Dr. Sharp. 0728: Assessed patient. This is a 52 y/o male with a history of recurrent pericarditis who presents with chest pain and nausea that feels exactly the same as his prior episodes of pericarditis. He has been on colchicine continuously for the last 2 years as a preventative measure for pericarditis. After symptoms began early this morning he took indomethacin as well. He continues to have chest pain and nausea on my assessment after 1gm IV Dilaudid, 25mcg IV Fentanyl, and two doses of 4mg IV Zofran. Will try 12.5mg IV Phenergan. He is concerned about going home due to persistent pain and nausea and would like to be admitted for IV pain medication, though he is concerned that he will not receive adequate pain management once admitted. He states during that prior admission the nurse would not given him IV Dilaudid frequently enough and he wants me to guarantee he will get frequent doses of narcotics once admitted. I advised that I am unable to control medication orders once admitted and he will need to discuss his concerns with the admitting doctor. His suggested trying oral pain medication to see if this would control his pain enough to go home, but he is reluctant to try this because he feels like he will be back here in an hour with pain. His exam is unremarkable. His EKG shows sinus mechanism with 1 PVC. His HR is 70. Spoke with hospitalist service. They will assess patient in the ED. (Dre Manzo) - Data Points Laboratory Results: Laboratory Results 03/25/18 05:30 03/25/18 05:30 Medications Given: Discontinued Medications Fentanyl (Sublimaze) 50 mcg IVP EDNOW ONE Stop: 03/25/18 06:53 Last Admin: 03/25/18 06:56 Dose: 50 mcg Hydromorphone HCl (Dilaudid) 1 mg IVP EDNOW ONE Stop: 03/25/18 05:42 Last Admin: 03/25/18 05:45 Dose: 1 mg Ketorolac Tromethamine (Toradol) 30 mg IVP Q6HRS JAIR Stop: 03/30/18 11:59 Last Admin: 03/25/18 12:00 Dose: 30 mg Morphine Sulfate (Morphine) 1 - 2 mg IVP Q1HR PRN PRN Reason: Pain, Severe Unable to Take PO Stop: 04/04/18 09:21 Last Admin: 03/25/18 09:52 Dose: 2 mg Ondansetron HCl (Zofran) 4 mg IVP EDNOW ONE Stop: 03/25/18 06:53 Last Admin: 03/25/18 06:56 Dose: 4 mg Ondansetron HCl (Zofran) 4 mg IVP EDNOW ONE Stop: 03/25/18 07:12 Last Admin: 03/25/18 07:12 Dose: 4 mg Oxycodone HCl (Oxycodone Ir) 5 - 10 mg PO Q3HRS PRN PRN Reason: Pain, Severe Able to Take PO Stop: 04/04/18 09:21 Last Admin: 03/25/18 11:58 Dose: 5 mg Promethazine HCl (Phenergan) 12.5 mg IVP ONCE ONE Stop: 03/25/18 07:41 Last Admin: 03/25/18 07:45 Dose: 12.5 mg Point of Care Test Results: Chemistry 03/25/18 05:32 POC Troponin I 0.00 ng/mL ng/mL (0.00-0.08) Departure - Departure Disposition: [facility] Inpatient Acute Clinical Impression: Chest pain Qualifiers: Chest pain type: unspecified Qualified Code(s): R07.9 - Chest pain, unspecified Condition: Fair
[2018-03-25] MEDS ORDERED: ONDANSETRON 4 MG/2 ML VIAL IVP ONE ×2 (06:52→07:11)
[2018-03-25] MEDS ORDERED: fentaNYL 100 MCG/2 ML INJ IVP ONE (06:52)
[2018-03-25] MEDS ORDERED: fentaNYL 100 MCG/2 ML INJ ONE (06:53)
[2018-03-25] MEDS ORDERED: ONDANSETRON 4 MG/2 ML VIAL ONE (06:53)
[2018-03-25] MEDS ORDERED: PROMETHAZINE HCL 25 MG/ML INJ IVP ONE (07:40)
[2018-03-25 09:03] VITALS: BP 107/59
[2018-03-25] MEDS ORDERED: PROMETHAZINE HCL 25 MG/ML INJ IVP PRN (09:22)
[2018-03-25] MEDS ORDERED: ACETAMINOPHEN 325 MG TAB PO PRN (09:22)
[2018-03-25] MEDS ORDERED: ONDANSETRON 4 MG/2 ML VIAL IVP PRN (09:22)
[2018-03-25] MEDS ORDERED: ONDANSETRON DISINTEGRATING 4 MG TAB PO PRN (09:22)
--- NOTE | 2018-03-25 09:22 | ASMTCMCOM ---
CM Note CM Note Notes: Chart reviewed for discharge planning purposes. 52 year old male admitted via ed for c/o chest pain. History significant for pericarditits. No anticipated needs at this time. Case management available should needs arise. Plan: Dc independent when medically cleared for discharge. Date Signed: 03/25/2018 09:21 AM Electronically Signed By:Sayra Bernard RN
--- NOTE | 2018-03-25 10:14 | GHP ---
DATE OF ADMISSION: 03/25/2018 CHIEF COMPLAINT: Chest pain. HPI: The patient is a 52-year-old, with a complicated past medical history, including a previous his tory of viral myocarditis which had resolved, and recurrent pericarditis. He is followed by Cardiolo gist, Dr. Rashel England at [facility] for this issue. He is also followed at [facility]. He said he has gotten previous MRI scans of his heart which have revealed recurrent pericarditis. His last s evere episode was about a year ago. He had been doing relatively well over the last year, taking col chicine and indomethacin as needed. He comes in today after waking up at 3:00 a.m. with severe left- sided chest pain. He stayed at home until the pain became unbearable and reached about an 8-03/15/09, then came to the emergency department. They gave him some fentanyl and Dilaudid, which helped his pa in, and he is demanding to be admitted. He is requesting to be admitted for pain control. He really has no other significant associated symptoms with this. No recent viral illnesses, fevers, chills, night sweats. He said he was feeling under the weather yesterday. No nausea, vomiting, diarrhea. H e does get nauseated with the narcotics. REVIEW OF SYSTEMS: A 10-point review of systems is done and is negative except as stated in the HPI. PAST MEDICAL HISTORY: 1. History of myocarditis. 2. Recurrent pericarditis, followed by Cardiology at [facility] in [place]. 3. History of frequent PVCs, status post ablation at the [facility]. 4. Atherosclerotic heart disease with a 10% plaque noted by angiogram previously. 5. Anxiety. SOCIAL HISTORY: He is . His is in anesthesia. He has worked as a mechanical service specialist. He does not smoke. Drinks alcohol some days, and has 2 children. FAMILY HISTORY: Mother and father both had heart disease and mother had hypertension. CURRENT MEDICATIONS: Please see med reconciliation form. ALLERGIES: To dairy products and penicillin. PHYSICAL EXAMINATION: VITAL SIGNS: He has been afebrile. Heart rate is 50 to 70, blood pressure 11 0/64, respirations 16, he is 99% on 2 L. GENERAL: He is a healthy-appearing 52-year-old. He is in no obvious distress. He is alert and oriented. Speech is clear and fluent. HEENT: Pupils equal. Extraocular movements intact. Mucous membranes moist. Oropharynx clear. NECK: Supple. No adenopa thy. HEART: Regular without murmur, gallop, or rub. LUNGS: Clear bilaterally without wheeze. ABD OMEN: Soft, nontender, nondistended. No masses. EXTREMITIES: No clubbing, cyanosis, or edema. Pu lses intact distally. MUSCULOSKELETAL: No joint deformities or effusions noted. NEUROLOGIC: He is alert and oriented. Speech is fluent. He moves all 4 extremities. PSYCHIATRIC: He is appropriate . LABORATORY DATA: CBC and chemistries are all within normal limits. Slightly elevated potassium. Tr oponin is negative. CRP is undetectable, and ESR is less than 1. ASSESSMENT AND PLAN: 1. Chest pain, unclear etiology, possible pericarditis. He says he has been evaluated at [facility]. Unfortunately, I am unable to log onto [place] today, and I tried to get a hold of his cardiolog ist and was unable to do so. At this time, we will treat him symptomatically and continue IV Toradol , colchicine, and give him a few doses of morphine as needed, and will transition him to his outpatie nt medications for discharge within 24 hours. 2. Hyperkalemia, probable lab abnormality and not a true reading. We will repeat this testing with his next troponin to make sure he is not having any myocarditis. 3. Anxiety, history of previously. 4. Remote history of myocarditis, resolved. We will repeat an echocardiogram. 5. History of premature ventricular contractions with a heavy burden, status post ablation at the [facility]. /[id number]/MODL
[2018-03-25] MEDS ORDERED: SODIUM CL NASAL 45 ML BTL NS PRN (10:52)
[2018-03-25] MEDS ORDERED: SUCRALFATE 1 GM TAB PO PRN (10:52)
[2018-03-25] MEDS ORDERED: MELATONIN 3 MG TAB PO PRN (10:52)
[2018-03-25] MEDS ORDERED: diphenhydrAMINE 25 MG CAP PO PRN (10:52)
[2018-03-25] MEDS ORDERED: PANTOPRAZOLE SODIUM 40 MG TAB PO PRN (10:52)
[2018-03-25] MEDS ORDERED: HYDROmorphONE/DILAUDID 1 MG/ML INJ IVP PRN (11:15)
[2018-03-25] MEDS: oxyCODONE IR 5 MG TAB PO PRN ×2 (11:23→11:58)
--- NOTE | 2018-03-25 11:38 | ECHO ---
[email or web address] [address] [address] Main: [phone] Fax: Transthoracic Echocardiogram Name: RADHA WALSH MR#: [id number] Study Date: 03/25/2018 Study Time: 10:11 AM Date of : 1965 Age: 52 year(s) Height: 188 cm (74 in.) Weight: 86.18 kg (190 lb.) BSA: 2.13 m2 Gender: Male Examination: Echo Indication: chest pain; h/o pericarditis Image Quality: Adequate Contrast: Requested by: Linette Crarasco BP: 107 mmHg/59 mmHg Heart Rate: Rhythm: Indication: chest pain; h/o pericarditis Procedure Staff Pay Station Department Manager: Tabby Hernández [facility] Reading Physician: Eladio Higgins MD Requesting Provider: Conclusions: Normal global systolic LV function. EF is 61 %. Mild mitral valve regurgitation is present. Pulmonary artery pressure is not obtained due to inadequate TR jet. Trivial pericardial effusion. Measurements: Chambers Valvular Assessment AV/MV Valvular Assessment TV/PV Normal Normal Normal Name Value Range Name Value Range Name Value Range Ao Lesli (MM): 3.2 cm (2.2 cm-3.7 AV Vmax: 1.13 m/s (1 m/s-1.7 PV Vmax: 0.69 m/s (0.6 m/s-0.9 cm) m/s) m/s) IVSd (2D): 1.0 cm (0.6 cm-1.1 AV maxP mmHg ( - ) PV PGmax: 2 mmHg ( - ) cm) LVOT Vmax: 1.01 m/s (0.7 m/s-1.1 LVDd (2D): 4.6 cm (4.2 cm-5.9 m/s) cm) RIVERA (Vmax): 3.4 cm2 ( - ) LVDs (2D): 3.2 cm (2.1 cm-4 MV E Vmax: 0.73 m/s ( - ) cm) MV A Vmax: 0.65 m/s ( - ) LVPWd (2D): 0.8 cm (0.6 cm-1 MV E/A: 1.12 ( - ) cm) LVOTd 2.2 cm 2.2 cm mm LVEF (BP): 61 % (>=55 %) RVDd(2D): 4.0 cm (1.9 cm-3.8 cmmm) Continued Measurements: Chambers Valvular Assessment AV/MV Name Value Name Value LADs Lon.8 cm MV DecTime: 148 m/s Patient: RADHA WALSH Study Date: 03/25/2018 Page 1 of 2 10:11 AM LA Area: 21.7 cm2 MV E' Septal: 0.08 m/s LA Volume: 61 ml MV E/E' Septal: 9.10 LA Volume Index: 28.6 ml/m2 MV E/E' Lateral: 5.90 TAPSE: 2.2 cm RA Area: 16.0 cm2 Additional Vessels Name Value Ao Ascendin.9 cm Findings: Left Ventricle: Normal size left ventricle. No LV hypertrophy. Normal global systolic LV function. EF is 61 %. No regional wall motion abnormality. Normal diastolic LV function. Right Ventricle: Normal size right ventricle. Normal RV function. Left Atrium: The left atrium is normal in size. Right Atrium: The right atrium is normal in size. Mitral Valve: The mitral valve is normal in appearance. Mild mitral valve regurgitation is present. No mitral stenosis is present. Aortic Valve: The aortic valve is tri-leaflet. Trivial aortic valve regurgitation. No aortic valve stenosis is present. Tricuspid Valve: The tricuspid valve is normal in appearance and function. Trivial tricuspid valve regurgitation. Pulmonary artery pressure is not obtained due to inadequate TR jet. Pulmonic Valve: Pulmonary valve not well visualized. Aorta: Normal size aortic root measuring 3.2 cm. Normal size ascending aorta measuring 2.9 cm. IVC: Normal size and course of the IVC. Pericardium: Trivial pericardial effusion. (No Signature Object) Patient: RADHA WALSH Study Date: 03/25/2018 Page 2 of 2 10:11 AM [id number]
[2018-03-25] MEDS ORDERED: KETOROLAC 30 MG/1 ML SDV IVP SCH (12:00)
--- NOTE | 2018-03-25 12:23 | ASMTLACE ---
LACE Length of stay for Answers: Less than 1 day current admission # of Emergency department Answers: 1-2 visits in the last 6 months Score: 1 Date Signed: 03/25/2018 12:23 PM Electronically Signed By:Sayra Bernard RN
--- NOTE | 2018-03-25 12:26 | ASMTDCNOTE ---
Case Management Discharge Discharge Order Complete? Answers: Yes Patient to Obtain Answers: Independently Medications Transportation Arranged Answers: Family/Friends Family Notified Answers: Yes Discharge Comments Notes: Medically cleared for discharge to home. No needs at this time. Date Signed: 03/25/2018 12:25 PM Electronically Signed By:Sayra Bernard RN
--- NOTE | 2018-03-25 17:02 | GDS ---
DIAGNOSIS: 1. Chest pain, unclear etiology. 2. History of pericarditis. 3. History of viral myocarditis. 4. Status post ablation for premature ventricular contractions. 5. Hypertension. 6. Anxiety. PROCEDURES DONE: Echocardiogram: Normal left ventricular size and function. Trivial pericardial effusion. HOSPITAL COURSE: The patient is a 52-year-old with a history significant for recurrent pericarditis. He is seen by a detention attendant in [place], Dr. Rashel England. He has been doing relatively well over the last year, and had an episode of chest pain starting at 3 a.m. that was like his usual pericardial pain. He came to the emergency department, and he was given Dilaudid, which he felt was not helpful, and then fentanyl which he liked a lot. He was admitted to the hospital for further pain control and was started on IV Toradol, colchicine, and was given some IV morphine. He felt like this was not controlling his pain well enough. I did offer to give him Dilaudid IV. However , he felt that was not helpful and wanted fentanyl. When I explained that we were unable to give him IV fentanyl on the floor, he opted to be discharged. I will discharge him with a small supply of oxycodone to use at home. He should continue indomethacin and colchicine. Patient refused blood work to recheck potassium and troponin. He wanted to leave [place] as he felt pain management in the hospital was suboptimal. CONDITION ON DISCHARGE: Good. His vital signs have remained stable throughout his stay, with a blood pressure of 107 to 110 over 60s. Heart rate is anywhere from 50 to 70. Oxygen saturations are 100% on room air. He looks relatively comfortable throughout his stay. He was sleeping when I went in to offer him IV Dilaudid, although he says his pain is anywhere from 6.5 to 8.5 out of 10. FOLLOWUP INSTRUCTIONS: He should follow up with his regular detention attendant. He has elected not to be followed at [facility]. /[id number]/MODL MTDD
[2018-03-25] MEDS ORDERED: CHOLECALCIFEROL VIT D3 1,000 UNITS TAB PO SCH (21:00)
[2018-03-25] MEDS ORDERED: OMEGA-3 FATTY ACIDS 1,000 MG CAP PO SCH (21:00)
[2018-03-25] MEDS ORDERED: COLCHICINE 0.6 MG CAP/TAB PO SCH (21:00)
[2018-03-25] MEDS ORDERED: LISINOPRIL 10 MG TAB PO SCH (21:00)
[2018-03-26] MEDS ORDERED: ASCORBIC ACID 500 MG TAB PO SCH (09:00)
[2018-03-26] MEDS ORDERED: ASPIRIN EC 81 MG TAB PO SCH (09:00)
[2018-03-26] MEDS ORDERED: METOPROLOL SUCCINATE XR 25 MG TAB PO SCH (09:00)
[2018-03-26] MEDS ORDERED: FLUTICASONE NASAL 120 SPRAYS/16 GM MDI EACHNARE SCH (09:00)
[2018-03-26] MEDS ORDERED: VITAMIN B COMPLEX 1 EA CAP/TAB PO SCH (09:00)
--- NOTE | 2018-03-26 23:07 | CPEKG ---
Test Reason : OPEN Blood Pressure : / mmHG Vent. Rate : 056 BPM Atrial Rate : 055 BPM P-R Int : 182 ms QRS Dur : 091 ms QT Int : 417 ms P-R-T Axes : 045 035 011 degrees QTc Int : 403 ms Sinus rhythm Ventricular premature complex Abnormal R-wave progression, early transition Minimal ST elevation, anterior leads Confirmed by Libby Sharp ([id number]) on 03/26/2018 11:06:30 PM Referred By: Confirmed By:Libby Sharp
== END 2018-03-25 12:42 | disposition home or self-care (01) ==
LOC: F2W 08:52
PROVIDERS: ADMIT Internal Medicine; ATTEND Internal Medicine
DX: R07.9 Chest pain, unspecified (principal); I10 Essential (primary) hypertension; F41.9 Anxiety disorder, unspecified
CPT/HCPCS: 71046; 93005; 93306; 96374; 96375; 99285; G0378; 84484-ER; J1170; J1885; J2270; J2405; J2550; J3010